=== PATIENT | male | born 1950 | race Caucasian/White ===

== ENCOUNTER 2025-07-14 07:22 | Day surgery (SDC) | payer MEDICARE, OTHER ==
[2025-07-14] MEDS ORDERED: LIDOCAINE-MPF 2% 5 ML VIAL ONE (10:42)
[2025-07-14] MEDS ORDERED: PROPOFOL 200 MG/20 ML BOTTLE ONE ×2 (10:42)
[2025-07-14 11:40] VITALS: BP 167/90; TEMP 98.1
== END 2025-07-14 11:45 | disposition home or self-care (01) ==
LOC: DS 07:22
PROVIDERS: ATTEND Surgery
DX: Z12.11 Encounter for screening for malignant neoplasm of colon (principal); K57.30 Diverticulosis of large intestine without perforation or abscess without bleeding; K40.30 Unilateral inguinal hernia, with obstruction, without gangrene, not specified as recurrent; K63.89 Other specified diseases of intestine; I10 Essential (primary) hypertension; E11.9 Type 2 diabetes mellitus without complications; E78.5 Hyperlipidemia, unspecified; Z79.899 Other long term (current) drug therapy; Z98.890 Other specified postprocedural states
CPT/HCPCS: 45380; 88305; J3490; J7120; A4663